=== PATIENT | male | born 1975 | race Caucasian/White ===

== ENCOUNTER → 2016-05-22 | Outpatient (CLI) | payer MEDICAID ==
[~2016-05-22] MED LIST: ALBUTEROL-200 PUFFS/ IH; AMOXICILLIN500 M2 PO; BACTRIM DS 8001 TAB PO; BENTYL10 M1 PO; GABAPENTIN100 M1 PO; NOMEDS XX; PREDNISONE 20MG20 MG PO; ZANTAC 150150 MG PO
[2016-05-22 13:10] LABS: BUN 8 mg/dL (7-18)
[2016-05-22 13:11] LABS: GFR (ESTIMATED) 108 ML/MIN (>60)
== END ==
LOC: LAB 11:29
PROVIDERS: Nurse Practitioner Family
DX: Z00.00 Encounter for general adult medical examination without abnormal findings (principal)

== ENCOUNTER → 2016-10-14 | Outpatient (CLI) | payer MEDICAID ==
[~2016-10-14] MED LIST changes: +AMITRIPTYLINE 225 MG PO; +CETIRIZINE HCL10 MG PO; +CYCLOBENZAPRINE10 MG PO; +DULERA1 ARO IH; +FLUTICASONE 50M16 GM; +GABAPENTIN 600600 MG PO; +GOOD SENSE ACID20 MG PO; +MUCINEX ER600 MG PO; +PROAIR HFA0.09 MG/AC IH; +SINGULAIR10 MG PO; +TYLENOL ES500 MG PO; +VENLAFAXINE HCL75 M1 PO
--- NOTE | 2016-10-15 10:28 | RADIOLOGY REPORT PS360 ---
MRI-L-SPINE W/O, MRI-3D RENDERING/MYELOGRAM HISTORY: Low back pain with left leg pain and tingling LOW BACK PAIN ORDERING PHYSICIAN: PRANAV MCNAIR CRNA PATIENT AGE: 40 years COMPARISON: None TECHNIQUE: Standard multiplanar multiecho sequences are performed without contrast. 3-D MIP and myelographic images are also rendered and reviewed FINDINGS: There is normal alignment. The spinal cord ends at the T12-L1 level. T12-L4 has an unremarkable appearance. L4-5: Minimal disc desiccation with minimal bulging disc. There is a small broad-based left foraminal disc protrusion/herniation best seen on the sagittal T1-weighted images. This is causing left-sided foraminal narrowing and mild impingement upon the left L4 for nerve root. L5-S1: Unremarkable appearance. IMPRESSION: 1. Mild degenerative disc disease with minimal bulging disc at L4-L5 and associated small broad-based left foraminal disc protrusion/herniation causing left-sided foraminal narrowing and mild impingement upon the left L4 nerve root.
== END ==
LOC: RAD 07:45
DX: M54.5 Low back pain (principal)

== ENCOUNTER 2016-12-28 16:16 | Emergency (ER) | payer MEDICAID ==
[~2016-12-28] VITALS: Ht 172.7 cm; Wt 72.6 kg
--- OUTSIDE RECORDS SUMMARY | 2016-12-28 16:24 | External Medical Summary Rpt | CCD ---
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 complet Auto 013 .5 ed Platele 12-30-2 228 142-424 complet t Bld 013 K/mm3 ed Ql Manual MEAN 12-30-2 7.9 fl 7.4-10. complet PLATELE 013 4 ed T VOLUME Granulo 12-30-2 62.4 % 37.0-80 complet cytes 013 .0 ed Fr Bld Auto LYMPH % 24-2 30.4 % 10-50 complet 013 ed Monocyt 24-2 4.9 % 1.7-9.3 complet es Fr 013 ed Bld Auto Eosinop 24-2 1.4 % 0.1-12. complet hil Fr 013 0 ed Bld Auto Basophi 24-2 0.9 % 0.1-2.0 complet ls Fr 013 ed Bld Auto Granulo -24-2 7.4 1.3-8.0 complet cytes # 013 K/mm3 ed Bld Auto Lymphoc 10-24-2 3.6 0.7-4.5 complet ytes Fr 013 K/mm3 ed Bld Auto Monocyt 1024-2 0.6 0.1-1.0 complet es # 013 K/mm3 ed Bld Auto Eosinop 10-24-2 0.2 0.0-0.4 complet hil # 013 K/mm3 ed Bld Auto Basophi 10-24-2 0.1 0-0.2 complet ls # 013 K/MM3 ed Bld Auto Procedures Procedure DOS Code Location Performer Comment 3D 27713 [place] RENDERING 7 MEDICAL W/INTERP IMAGING & ASS POSTPROCE SS SUPERVISI ON MRI 97866 [facility] SPINAL 7 MEDICAL CANAL IMAGING LUMBAR ASS W/O CONTRAST MATERIAL APPL 27809 [facility] MODALITY 7 [facility]/> AREAS INC INC TRACTION MECHANICA L THERAPEUT 40326 [facility] FOST[facility] IC PX 1/> 7 [facility] AREAS INC INC EACH 15 MIN EXERCISES THERAPEUT 11267 [facility] FOST[facility] IC PX 1/> 7 [facility] AREAS INC INC EACH 15 MIN EXERCISES APPL 80751 [facility] MODALITY 7 [facility] 1/> AREAS INC INC TRACTION MECHANICA L APPL 53636 [facility] MODALITY 7 [facility] 1/> AREAS INC INC ELEC STIMJ UNATTENDE D APPLICATI 63972 [facility] ON 7 [facility] MODALITY INC INC 1/> AREAS HOT/COLD PACKS APPLICATI 55357 CRISTIAN FOSTER ON 7 [facility] MODALITY INC INC 1/> AREAS HOT/COLD PACKS APPL 99425 [facility] FOST[facility] MODALITY 7 [facility] 1/> AREAS INC INC ELEC STIMJ UNATTENDE D APPL 21315 [facility] FOST[facility] MODALITY 7 [facility] 1/> AREAS INC INC TRACTION MECHANICA L THERAPEUT 37488 CRISTIAN FOSTER IC PX 1/> 7 [facility] AREAS INC INC EACH 15 MIN EXERCISES THERAPEUT 61600 CRISTIAN FOSTER IC PX 1/> 7 [facility] AREAS INC INC EACH 15 MIN EXERCISES APPL 22925 [facility] F[facility] MODALITY 7 [facility] 1/> AREAS INC INC TRACTION MECHANICA L APPL 93058 [facility] MODALITY 7 [facility] 1/> AREAS INC INC ELEC STIMJ UNATTENDE D APPLICATI 95703 C[facility] FOSTER ON 7 [facility] MODALITY INC INC 1/> AREAS HOT/COLD PACKS APPL 12972 [facility] F[facility] MODALITY 7 [facility] 1/> AREAS INC INC ULTRASOUN D EA 15 MIN OPHTH 62348 SCIFR SCIFR MEDICAL 7 XM&EVAL COMPRE NEW PT 1/> VST COLLECTIO 02341 [facility] N VENOUS 7 [facility] BLOOD INC INC VENIPUNCT URE COMPREHEN 98838 [facility] F[facility] SIVE 7 [facility] METABOLIC INC INC PANEL LIPID 21266 [facility] PANEL 7 [facility] INC INC FINAL G9638 GERRY DAVENPORTUTCHER REPORTS 7 MEDICAL W/O DOC IMAGING 1/MORE ASS DOSE REDUCTION TECH FINAL RPT G[address]/MRI 7 MEDICAL CHEST/NCK IMAGING /U/S NO ASS THR NOD<1.[address] THORAX 24718 [facility]OST[facility] W/O 7 [facility] CONTRAST INC INC MATERIAL BRNCDILAT 96303 C[facility] FOSTER RSPSE 6 [facility] SPMTRY INC INC PRE&POST- BRNCDILAT ADMN GAS 96651 CRISTIAN FOSTER DILUT/WAS 6 [facility] HOUT LUNG INC INC VOL W/WO DISTRIB VENT&[place] [address] [facility] F[facility] DIFFUSING 6 [facility] CAPACITY INC INC NONINVASI 15794 CRISTIAN FOSTER VE 6 [facility] EAR/PULSE INC INC OXIMETRY MULTIPLE DETER CT THORAX 83613 [facility] FOSTER W/O 6 [facility] CONTRAST INC INC MATERIAL BRONCHOSC 45777 ELIEL FLOREZ OPY 6 MEDICAL BRONCHIAL SERV /ENDOBRNC FOUNDATIO L BX 1+ N SITES CULTURE 99636 [place] [facility] FNGI 6 [facility] MOLD/YEAS E E T PRSMPTV [facility] OT XCPT BLOOD SUSCEPTBI 25785 [place] LABONE OF LTY STDY 6 [facility] [place], ANTIMICRB E INC. IAL AGNT [facility] AGAR DILUTJ SPECIAL 88542 [place] [facility] STAIN 6 [facility] GROUP 1 E E MICROORGA [facility] NISMS I&R INJECTION J2405 [facility] 6 [facility]ALTH[facility] HEALTHCAR ONDANSETR E E ON HCL HOSPITALS HOSPITALS PER 1 MG CELL 56853 [place] [facility] COUNT 6 [facility] MISC BODY E E FLUIDS HOSPITALS HOSPITALS W/DIFFERE NTIAL COUNT CONCENTRA 40543 [place] [facility] TION 6 [facility]CAR INFECTIOU E E S AGENTS [facility] VIRUS 33359 [place] [facility] TISS CUL 6 [facility]ALTHCAR INOCULATI E E ON HOSPITALS HOSPITALS CYTOPATHI C EFFECT CYTP 14858 [place] SLCTV 6 [facility]CAR CELL E E ENHANCEME [facility] NT INTERPJ XCPT C/V INJECTION J3010 [place] [facility] FENTANYL 6 [facility] HE[facility] CITRATE E E 0.1 MG [facility] INFUSION J7030 [place] NORMAL 6 [facility] SALINE E E SOLUTION [facility] 1000 CC BRNCHSC 75504 [place] [facility] W/BRNCL 6 [facility] HEALTHCAR ALVEOLAR E E LAVAGE [facility] CUL BACT 43578 [place] XCPT 6 [facility] URINE E E BLOOD/STO [facility] OL AEROBIC ISOL CUL BACT 09636 [place] [facility] AEROBIC 6 [facility] HEALTHCAR ADDL E E METHS [facility] DEFINITIV E EA ISOL CULTURE 57801 [place] [facility] FUNGI 6 [facility]ALTHCAR DEFINITIV E E E ID EACH [facility]OSPITALS ORGANISM YEAST SMR PRIM 33895 [place] SRC 6 [facility] GRAM/GIEM E E SA STAIN [facility] BCT FUNGI/COLLINS L VIRUS 10528 [place] [facility] CENTRIFUG 6 [facility] E ENHNCD E E ID [facility] IMFLUOR STAIN EA IADNA 07234 [place] [facility] LEGIONELL 6 [facility] A E E PNEUMOPHI [facility] LA AMPLIFIED PROBE TQ INJECTION J2250 [facility] 6 [facility]ALTHCAR MIDAZOLAM E E HCL PER HOSPITALS HOSPITALS 1 MG CULTURE 25224 [facility] TUBERCLE/ 6 [facility] OTH E E ACID-FAST [facility] BACILLI ANY ISOL SMR PRIM 17825 [place] [facility] SRC 6 [facility] FLUORESCE E E NT&/AFS [facility] BCT FNGI PARASIT TISS JOSEF 95117 [facility] SLIDE 6 [facility] SAMPS E E SKN/HR/NL [facility] S FNGI/ECTO PARASIT IADNA 96739 [place] [facility] RESPIRATR 6 [facility]ALTH[facility] Y PROBE & E E REV [facility] TRNSCR 3-5 TARGETS FLUORODEO A9552 [facility] XYGLUCOSE 6 Y Y F-18 FDG [facility] DX UP TO 45 MCI PET 57531 [facility] IMAGING [address] [facility] ATTENUATI ON SKULL BASE MID-THIGH COMPREHEN 04603 LAB BILL LAB BILL SIVE 6 MARIA E MARIA E [facility] PANEL CULTURE 20166 CRIST[facility] FOSTER TUBERCLE/ 6 [facility] OTH INC INC ACID-FAST BACILLI ANY ISOL CULTURE 27935 [facility] FOSTER FNGI 6 [facility] MOLD/YEAS INC INC T PRSMPTV OTH XCPT BLOOD BILIRUBIN 72451 LAB BILL LAB BILL DIRECT 6 MARIA E MARIA E [facility] [place] [address] LAB BILL LAB BILL LIPASE 6 MARIA E MARIA E [facility] BLOOD 98946 LAB BILL LAB BILL COUNT 6 MARIA E MARIA E COMPLETE [facility] AUTO&[place] [address] LAB BILL LAB BILL AMYLASE 6 MARIA E MARIA E [facility] PULMONARY 93564 [place] REGIN[place] STRESS 6 MEDICAL JAM TESTING SERV SIMPLE FOUNDATIO N GAS 85604 CRISTIAN FOSTER DILUT/WAS 6 [facility] HOUT LUNG INC INC VOL W/WO DISTRIB VENT&[place] [address] [place] REGIN[place] DIFFUSING 6 MEDICAL JAM CAPACITY SERV FOUNDATIO N PLETHYSMO 88989 [place] REGIN[place] GRAPHY 6 MEDICAL JAM LUNG SERV VOLUMES FOUNDATIO W/WO N AIRWAY RESIST NONINVASI 38887 CRISTIAN FOSTER VE 6 [facility] EAR/PULSE INC INC OXIMETRY MULTIPLE DETER BRNCDILAT 10443 [place] REGINA RSPSE 6 MEDICAL JAM SPMTRY SERV PRE&POST- [place] [address] [place] ALL ABDOMEN & 6 MEDICAL PELVIS IMAGING W/O ASS CONTRAST MATERIAL THER 03462 [facility] FOSTER PROPH/DX 6 [facility] NJX IV INC INC PUSH SINGLE/1S T SBST/DRUG ALPHA-1-A 15367 [facility] FOST[facility] NTITRYPSI 6 [facility] N INC INC PHENOTYPE COLLECTIO 19228 [facility] FOSTER N VENOUS 6 [facility] BLOOD [place] [address] [facility] SURG [address] [place] [address] PATHOLOGY GROSS&MADELINE ROSCOPIC EXAM COLONOSCO 52345 [facility] F[facility] PY 6 [facility] W/BIOPSY INC INC SINGLE/MU LTIPLE MRI 31909 C[facility]ST[facility] FOSTER SPINAL 6 [facility] CANAL INC INC CERVICAL W/O CONTRAST MATRL MANUAL 78847 [facility] FOSTER THERAPY 6 [facility] TQS 1/> INC INC REGIONS EACH 15 MINUTES APPL 48611 [facility] FOSTER MODALITY 6 [facility] 1/> AREAS INC INC ULTRASOUN D EA 15 MIN APPLICATI 88282 [facility] FOST[facility] ON 6 [facility] MODALITY INC INC 1/> AREAS HOT/COLD PACKS E-STIM G0283 [facility] FOSTER 1/> AREAS 6 [facility] OTH THAN INC INC WND CARE PART TX PLAN E-STIM G0283 [facility]OST[facility] 1/> AREAS 6 [facility] OTH THAN INC INC WND CARE PART TX PLAN APPLICATI 80243 [facility] FOST[facility] ON 6 [facility] MODALITY INC INC 1/> AREAS HOT/COLD PACKS APPL 05484 [facility]RIST[facility] FOSTER MODALITY 6 [facility] 1/> AREAS INC INC ULTRASOUN D EA 15 MIN MANUAL 46354 [facility] FOSTER THERAPY 6 [facility] TQS 1/> INC INC REGIONS EACH 15 MINUTES THERAPEUT 94803 CRISTIAN FOSTER IC PX 1/> 6 [facility] AREAS INC INC EACH 15 MIN EXERCISES THERAPEUT 95471 CRISTIAN FOSTER IC PX 1/> 6 [facility] AREAS INC INC EACH 15 MIN EXERCISES MANUAL 80649 [facility] FOSTER THERAPY 6 [facility] TQS 1/> INC INC REGIONS EACH 15 MINUTES APPL 37672 C[facility]ST[facility] FOSTER MODALITY 6 [facility] 1/> AREAS INC INC ULTRASOUN D EA 15 MIN APPLICATI 21268 [facility] FOSTER ON 6 [facility] MODALITY INC INC 1/> AREAS HOT/COLD PACKS E-STIM G0283 CRISTIAN FOSTER 1/> AREAS 6 [facility] OTH THAN INC INC WND CARE PART TX PLAN LOCM Q9967 [facility] FOSTER 300-399 6 [facility] MG/ML INC INC IODINE CONCENTRA TION PER ML PHYSICAL 39249 CRISTIAN FOSTER THERAPY 6 [facility] [place] [address] C[facility] FOSTER ABDOMEN & 6 [facility] PELVIS INC INC W/CONTRAS T MATERIAL CT THORAX 44819 [place] ALL W/O 6 MEDICAL CONTRAST IMAGING MATERIAL ASS RADEX 02630 [facility] ALL SPINE 6 MEDICAL CERVICAL IMAGING 4 OR 5 ASS VIEWS BLOOD 05420 [facility]ST[facility] FOSTER COUNT 6 [facility] COMPLETE INC INC AUTO&AUTO DIFRNTL WBC RADIOLOGI 18126 [facility] ALL C EXAM 6 MEDICAL CHEST 2 IMAGING VIEWS ASS FRONTAL&L ATERAL COMPREHEN 83071 [facility] FOSTER SIVE 6 [facility] METABOLIC INC INC PANEL Encounters Encounter Start End Date Code Location Performer Type Date HOSPITAL - 7 7 [facility] OUTPATIEN E T HOSPITALS OFFICE 59769 [facility] 7 7 [place] PHYSICIAN NEW/ESTAB S PATIENT 40 MIN OFFICE 38304 OUTPATIEN 7 7 [facility] T VISIT 5 E MINUTES HOSPITALS OFFICE 84024 [facility] 7 7 [facility] T VISIT INC 10 MINUTES [facility]OSPITAL [facility] - 7 7 [facility] OUTPATIEN INC T OFFICE 00296 [facility]AH MCNAIR OUTPATIEN 7 7 MD EDITH, T VISIT PSC 15 MINUTES [facility]OSPITAL [facility] - 7 7 [facility] OUTPATIEN INC T OFFICE 08094 SARAH MCNAIR OUTPATIEN 7 7 MD EDITH, T VISIT PSC 15 MINUTES HOSPITAL [facility] - 7 7 [facility] OUTPATIEN INC T OFFICE 11453 [facility] 7 7 [facility] T VISIT INC 10 MINUTES [facility]OSPITAL [facility] - 7 7 [facility] OUTPATIEN INC [facility]PITAL [facility] - 7 7 [facility] OUTPATIEN INC T OFFICE 05304 [facility] 7 7 [facility] T VISIT 5 INC MINUTES OFFICE 79066 SARAH MCNAIR OUTPATIEN 7 7 MD EDITH, T NEW 30 PSC MINUTES HOSPITAL [facility] - 7 7 [facility] OUTPATIEN INC T [facility]PITAL [facility] - 7 7 [facility] OUTPATIEN INC T OFFICE 94240 [facility] OUTPATIEN 7 7 PHYSICIAN T VISIT S GROUP 15 MINUTES HOSPITAL [facility] - 6 6 [facility] OUTPATIEN INC T OFFICE 84850 [facility] OUTPATIEN 6 6 HEALTH T NEW 20 SOLUTIONS MINUTES IN HOSPITAL [facility]STIAN - 6 6 [facility] OUTPATIEN INC T [facility] [place] - 6 6 [facility] OUTPATIEN E [facility] UN[facility] - 6 6 [facility] T OFFICE 32967 [facility] OUTPATIEN 6 6 [facility] T VISIT URGENT 25 TREAT MINUTES HOSPITAL [facility] - 6 6 [facility] OUTPATIEN INC T [facility]PITAL [facility] - 6 6 [facility] OUTPATIEN INC T [facility]OSPITAL [facility] - 6 6 [facility] OUTPATIEN INC T EMERGENCY 82898 TO [place] 6 6 PHYSICIAN DEPARTMEN S, [facility] T VISIT HIGH/URGE NT SEVERITY HOSPITAL [facility] - 6 6 [facility] OUTPATIEN INC T OFFICE 84879 [facility] OUTPATIEN 6 6 PHYSICIAN T VISIT S GROUP 10 MINUTES HOSPITAL [facility] - 6 6 [facility] OUTPATIEN INC T OFFICE 95199 [facility] OUTPATIEN 6 6 PHYSICIAN T NEW 30 S GROUP MINUTES EMERGENCY 49700 TO MIJARES 6 6 PHYSICIAN U MARTINA DEPARTMEN S, [facility] T VISIT MODERATE SEVERITY EMERGENCY 51945 [facility] 6 6 [facility]/M INOR PROB [facility]OSPITAL [facility] - 6 6 [facility] OUTPATIEN INC T HOSPITAL [facility] - 6 6 [facility] OUTPATIEN INC T OFFICE 18924 [facility] OUTPATIEN 6 6 PHYSICIAN MADELINE T VISIT S GROUP 10 MINUTES HOSPITAL [facility] - 6 6 [facility] OUTPATIEN INC T HOSPITAL [facility] - 6 6 [facility] OUTPATIEN INC T OFFICE 91965 [facility] OUTPATIEN 6 6 PHYSICIAN MADELINE T NEW 20 S GROUP MINUTES HOSPITAL [facility] - 6 6 [facility] OUTPATIEN INC T EMERGENCY 08210 TO KULKARNI DEPT 6 6 PHYSICIAN MADELINE VISIT S, [facility] HIGH SEVERITY& THREAT FUNCJ EMERGENCY 35058 [facility] 6 6 [facility] DEPARTMEN INC T VISIT LOW/MODER SEVERITY Emergency PEPPER Allred (ER) 4 18:38 4 19:33 [facility] E. Emergency PEPPER Kulkarni MD (ER) 3 23:55 3 01:29 [facility]
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
--- OUTSIDE RECORDS SUMMARY | 2016-12-28 16:30 | External Medical Summary Rpt ---
Author Author LORY Molina, [employer] Organization [employer] Address Unknown Phone Unavailable
--- OUTSIDE RECORDS SUMMARY | 2016-12-28 16:30 | External Medical Summary Rpt | CCD ---
Demographics Preferred Language Lithuanian Marital Status Unknown Oriental Orthodox Affiliation Unknown Race Unknown Ethnic Group Unknown Author Author , LORY HENLEY Address Unknown Phone Immunization No patient found.
--- OUTSIDE RECORDS SUMMARY | 2016-12-28 16:30 | External Medical Summary Rpt | CCD ---
Demographics Preferred Language Kosovan Marital Status Unknown Sabianist Affiliation Unknown Race Unknown Ethnic Group Unknown Author Author , LORY HENLEY Address Unknown Phone Immunization No patient found.
[2016-12-28] MEDS ORDERED: PREDNISONE 20MG20 MG PO (16:52)
[2016-12-28] MEDS ORDERED: AUGMENTIN 875-1 EACH PO (16:52)
--- NOTE | 2016-12-28 16:52 | [facility] Report ---
History of Present Issue Date/Time Seen by Provider 12/28/16 1630 Visit Reason Pt arrived:Walked Presenting Problem:COUGH, CONGESTION X5 DAYS Location if Accident: Onset of symptoms date/time:/ or onset unknown for:MEDICAL HX UNKNOWN Have you (or family members/close friends) recently traveled outside the [place]? N If Yes, where/when: Have you had exposure to infectious disease within the past month? TB? Other? Specify: Here w/ c/o sinus pressure, nasal congestion, diana ear pressure, intermittent headaches. Initially thought for about 5 days then remembered it started last or Thursday so nearly 10 days ago. Occasional cough and wheeze but contributes that to COPD and tobacco abuse. Denies fever. Generalized fatigue and malaise last 2-3 days. No known sick contacts. taking zyrtec and flonase 1 spray daily for allergies. Source patient Exam Limitations no limitations ALLERGIES Coded Allergies: No Known Allergies (07/13/15) Home Medications Reported Medications Famotidine (Acid Early Childhood Education Coordinator) 40 MG PO QHS Venlafaxine Hydrochloride (Venlafaxine XR) 225 MG PO QHS Amitriptyline Hcl (Amitriptyline) 25 MG PO QHS Cyclobenzaprine Hcl (Cyclobenzaprine 10MG) 10 MG PO BIDP PRN MUSLCE SPASMS Albuterol Sulfate (Proair Hfa) 2 PUFF IH QIDP PRN SHORTNESS OF BREATH MOMETASONE/FORMOTEROL (Dulera 100 Mcg/5 Mcg Inhaler) 2 PUFF IH BID CETIRIZINE HCL (Cetirizine 10MG) 10 MG PO DAILY FLUTICASONE PROPIONATE (Fluticasone 50MCG Nasal [place]) 2 SPRAY NA DAILY Acetaminophen (Tylenol XS 500MG) 650 MG PO Q4HP PRN PAIN Guaifenesin (Mucinex) 600 MG PO BID Montelukast Sodium (Singulair) 10 MG PO QHS Gabapentin (Gabapentin 600MG) 600 MG PO Q8 History Medical History General CAD? No Angina: No AL: No Hypertension? No Hyperlipidemia? No CHF? No DVT? No PE? No COPD? Yes Asthma? Yes Anemia? No GERD? No Gastric ulcers? No GI Bleed? No Hernia? No Thyroid Problems? No Hypothyroidism? No CVA? No Seizures? No Diabetes? No Renal Insuffiency? No UTI? No Stones? No BPH? No GB Disease: No Nephritic Syndrome? No Asplenia? No Hepatitis? No Sickle Cell Disease? No Arthritis? No Migraines? Yes Cataracts? No Glaucoma? No MRSA? No HIV? No TB? No Anxiety? Yes Depression? No Cancer? No More? No Additional hx: REPORT PROBLEM WITH BACK Immunization HX DT/Tetanus Unknown Surgical Hx Previous Surgery?Y Dental Surgery Social History Smoking Hx Smoker: Current Every Day Smoker Tobacco: Yes Type Cigarettes Packs/day < 1 Pack Alcohol Alcohol: Yes Review of Systems All Other Systems Reviewed and Negative Constitutional see HPI Eyes denies drainage, denies vision change ENT see HPI, nose discharge, nose congestion, throat pain (especially at night). denies: ear discharge. Respiratory see HPI, denies shortness of breath Cardiovascular denies chest pain Gastrointestinal denies no symptoms reported Musculoskeletal denies joint pain Skin denies rash Psychiatric/Neurological see HPI Physical Exam Vital Signs Vital Signs Date Time Temp Pulse Resp B/P Pulse O2 O2 Flow FiO2 Ox Delivery Rate 12/28 1623 99.2 104 18 128/87 96 General Appearance normal appearance, no apparent distress, rooms smells heavily of cig smoke Eye Exam - bilateral eye normal exam Ear, Nose, Throat nasal congestion, pharyngeal erythema (w/o tonsillar swelling/ exudate), bilateral maxillary sinus tenderness, diana EACs and TMs normal Neck non-tender, supple, full range of motion Respiratory Status No: respiratory distress, use of accessory muscles, productive cough, non productive cough. Lung Sounds anterior: lungs clear. posterior: lungs clear. bilateral: lungs clear. Cardiovascular no peripheral edema, no murmur, tachycardia Neurologic alert, oriented x 3 Mental status normal mood/affect Skin normal color, warm/dry Lymphatic no adenopathy Medical Decision Making LABS/Meds/Orders Pt receiving controlled substance in ED? No Departure Departure Time of Disposition 1649 Disposition DC Home or Self Care(routine) Clinical Impression Primary Impression: Acute maxillary sinusitis Qualifiers: Recurrence: non-recurrent Qualified Code: J01.00 - Acute maxillary sinusitis, unspecified Condition STABLE Referrals LUCILA GOFF APRN (Family) IMMEDIATELY for new or worsening symptoms OR no noticeable improvement over the next 72 hours. 911 for difficulty breathing or swallowing. Patient Instructions DI for Sinusitis Additional Instructions * augmentin can cause GI side effects. Probiotics help prevent these symptoms. * Start antibiotic and be sure to take as ordered for the FULL length of time even if you feel better. Sinus infections do not get better overnight. It may take 2-3 days to notice much improvement so be sure to use conservative measures as discussed for symptoms. * Increase your Flonase to 2 sprays each nostril daily to help with nasal congestion, sinus and ear pressure/inflammation until you are back to baseline * Lots of fluids * Sleep elevated * Humidifier/vaporizer * * STOP SMOKING!!!! * * Start steroid today. Helps with inflammation therefore, sinus pressure, cough and wheezing. Follow directions on package. Rvwd side effects. Pt reports they have taken them before. Discharge Counseling Counseled pt/family regarding diagnosis, medications/RX, home care, follow up needs Prescriptions Current Visit Scripts Amoxicillin/Potassium Clav (Augmentin 875-125 Tablet) 1 EACH PO BID #20 TAB Prednisone (Prednisone 20MG) 20 MG PO BID #10 TAB at 7934
[2016-12-28 17:04] VITALS: BP 128/87
== END 2016-12-28 17:04 | disposition home or self-care (01) ==
LOC: UTC 16:16
DX: J01.00 Acute maxillary sinusitis, unspecified (principal); F41.9 Anxiety disorder, unspecified; J44.9 Chronic obstructive pulmonary disease, unspecified